=== PATIENT | male | born 1955 | race American Indian/Alaskan Native ===

== ENCOUNTER 2025-02-05 12:36 | Day surgery (SDC) | payer BC, OTHER ==
[~2025-02-05] VITALS: Ht 180.3 cm; Wt 94.4 kg
[~2025-02-05 12:36] MED LIST: CENTRUM SILVER1 EAC3 PO; GARLIC100 MG PO; IBLOOD GLUCOSE TEST STRIP 1 EA TEST VI PRN; JANUVIA25 MG; LACTATED RINGER'S 1,000 ML IV SCH; LANTUS SOL100 UNIT/1 SQ; LIDOCAINE HCL 1% 5 ML SDV INJ ONE; LISINOPRIL20 MG PO; MIDAZOLAM HCL 5 MG/5 ML VIAL IV PRN; NOVOLOG FL100 UNIT/1 SQ; fentaNYL citrate 100 MCG/2 ML VIAL IV PRN
[2025-02-05 13:04] VITALS: BP 142/64
[2025-02-05] MEDS ORDERED: fentaNYL citrate 100 MCG/2 ML VIAL ONE (13:35)
[2025-02-05] MEDS ORDERED: MIDAZOLAM HCL 5 MG/5 ML VIAL ONE (13:35)
--- NOTE | 2025-02-05 14:46 | NUR ---
02/05/25 1446 Amber Palmer 1424 PT ARRIVED TO PACU ON 4L VIA NC, PT ASLEEP AND SMALL AMOUNT OF SNORING NOTED. 1431 PT WAKES EASILY AND IS REORIENTED TO PACU AND EASILY FALLS BACK TO SLEEP WITH SMALL AMOUNT OF SNORING NOTED. 1444 MD AT BEDSIDE TALKING TO PT.
[2025-02-05 15:07] VITALS: BP 135/75
--- NOTE | 2025-02-06 14:32 | OR ---
[facility] [address], [place] [address] Signed DATE OF OPERATION: 02/05/2025 SURGEON: Richard Muñoz MD PREOPERATIVE DIAGNOSIS: Surveillance. POSTOPERATIVE DIAGNOSIS: Polyps x4. PROCEDURE: Total colonoscopy to cecum with cold snare polypectomy x1 and cold morcellation polypectomy x3. ANESTHESIA: Intravenous sedation, fentanyl 100 mcg and Versed 4 mg. INDICATION: This 69-year-old man is a patient of Dr. Mayfield at [facility]. Fifteen years ago in 2009, he underwent colonoscopy where he was found to have an adenomatous polyp of the transverse colon. Two other areas biopsied, but not adenomatous. He has no current symptoms of bleeding, diarrhea, or constipation and no family history of colon cancer. He is admitted to undergo colonoscopy. He understands the risk of bleeding, infection, and perforation. FINDINGS: The prep was good. Complete and full colonoscopy was taken with full intubation of the cecum itself. There were 4 polyps in total, one in the hepatic flexure, another at the transverse colon, another in the proximal left, and another in the sigmoid. All were excised completely. None were worrisome for malignancy. All were adenomatous in appearance. DESCRIPTION OF PROCEDURE: The patient was brought to the endoscopy suite and placed in lateral decubitus position, given intravenous sedation to the point of slurred speech and nystagmus. Digital rectal examination was normal. Prostate was normal as well. The Olympus video colonoscope was passed in the rectum and manipulated throughout the colon noting a small polyp at the hepatic flexure. This was excised with cold morcellation technique. The scope was then advanced fully to the cecum. The ileocecal Electronically Signed By: RICHARD MUÑOZ MD 02/06/25 1432 PATIENT NAME: RICHARD MARTIN JR OPERATIVE REPORT DATE OF : 59 REPORT #: [id number] PHYSICIAN: RICHARD MUÑOZ MD PCP: SERENA MAYFIELD MD REPORT IS CONFIDENTIAL AND NOT TO BE RELEASED WITHOUT AUTHORIZATION [facility] [address], [place] [address] Signed valve and appendiceal orifice were normal. Irrigation was undertaken. The scope was carefully withdrawn from that point. Upon withdrawal of scope, at the hepatic flexure, the previous polypectomy site was identified as normal without sign of bleeding. Further withdrawal showed a small polyp in the mid transverse colon. This was excised with cold snare technique. Further withdrawal found another small polyp of the proximal descending colon, which was excised with cold morcellation technique and ultimately another small polyp of sigmoid similarly excised. Retroflexed view of the rectum was normal. The scope was removed, and the patient was taken to recovery room in good condition. CONCLUDING DIAGNOSIS: Polyps x4, all excised completely. PLAN: Recommend repeat colonoscopy in 3 to 5 years based on current guidelines, sooner if symptoms should develop. He will return to the ongoing care of Dr. Mayfield at [facility]. MD KASIA Gomez/MARQUIS /[id number] cc: Dr. Mayfield Copies: ~ Electronically Signed By: RICHARD MUÑOZ MD 02/06/25 1432 PATIENT NAME: RICHARD MARTIN OPERATIVE REPORT DATE OF : 59 REPORT #: [id number] PHYSICIAN: RICHARD MUÑOZ MD PCP: SERENA MAYFIELD MD REPORT IS CONFIDENTIAL AND NOT TO BE RELEASED WITHOUT AUTHORIZATION
--- NOTE | 2025-02-10 17:10 | PATH ---
[facility] [address] [facility] [place] [address] Signed SPECIMEN(S): A HEPATIC FLEXURE COLON POLYP SPECIMEN(S): B TRANSVERSE COLON POLYP SPECIMEN(S): C DESCENDING COLON POLYP SPECIMEN(S): D SIGMOID POLYP SPECIMEN SOURCE: A. HEPATIC FLEXURE COLON POLYP B. TRANSVERSE COLON POLYP C. DESCENDING COLON POLYP D. SIGMOID POLYP CLINICAL HISTORY: History of polyps and transverse colon. Internal hemorrhoids polyps x 4. A-D) polyp FINAL PATHOLOGIC DIAGNOSIS: A. Colon, hepatic flexure polyp, biopsy: - Portions of tubular adenoma (5 of 7 pieces); negative for high-grade dysplasia and malignancy. - Portion of benign, unremarkable colonic mucosa (2 of 7 pieces). B. Colon, transverse polyp, biopsy: - Portions of tubular adenoma (2 of 3 pieces); negative for high-grade dysplasia and malignancy. - Portion of benign, unremarkable colonic mucosa (1 of 3 pieces). C. Colon, descending polyp, biopsy: - Tubular adenoma. - Negative for high-grade dysplasia and malignancy. D. Colon, sigmoid polyp, biopsy: - Minute hyperplastic polyp (1 of 4 pieces). - Benign, unremarkable colonic mucosa (3 of 4 pieces. - Negative for inflammation, dysplasia, and malignancy. [facility] MICROSCOPIC EXAMINATION: Histologic sections of all submitted blocks are examined by light microscopy. These findings, together with the gross examination, support the pathologic diagnosis. GROSS DESCRIPTION: A. The specimen, labeled and designated "Suman, hepatic flexure colon polyp," is received in formalin and consists of seven demarco soft tissue fragments, PATIENT NAME: RICHARD MARTIN JR PATHOLOGY DATE OF : 59 REPORT #: [id number] PHYSICIAN: BRAD BLANDON PCP: SERENA NAGY MD REPORT IS CONFIDENTIAL AND NOT TO BE RELEASED WITHOUT AUTHORIZATION [facility] [address] [place], [place] [address] Signed ranging from 0.1-0.3 cm. Entirely submitted in (A1). B. The specimen, labeled and designated "Suman, transverse colon polyp," is received in formalin and consists of three demarco soft tissue fragments, ranging from 0.2-0.3 cm. Entirely submitted in (B1). C. The specimen, labeled and designated "Suman, descending colon polyp," is received in formalin and consists of one demarco soft tissue fragment, 0.6 cm. Entirely submitted in (C1). D. The specimen, labeled and designated "Suman, sigmoid polyp," is received in formalin and consists of four demarco soft tissue fragments, ranging from 0.1-0.3 cm. Entirely submitted in (D1). AB (under the direct supervision of a pathologist) The Gross Description was prepared using a voice recognition system. The report was reviewed for accuracy; however, sound-alike word errors, addition and/or deletions may occur. If there are any questions about this report, please contact Client Services. ADDITIONAL NOTES: Immunohistochemical and/or in situ hybridization studies if performed in this case included appropriate positive controls that reacted as expected. This test was developed and its performance characteristics determined by [facility]. It has not been cleared or approved by the U.S. Food and Drug Administration. The FDA has determined that such clearance or approval is not necessary. This test is used for clinical purposes. It should not be regarded as investigational or for research. [facility] is certified under the Clinical Laboratory Improvement Amendments of 1988 (CLIA) as qualified to perform high complexity clinical laboratory testing. PERFORMING LABORATORY: Technical component was performed by [facility], [facility] [place] [address] (CLIA# [id number]). Professional interpretation was performed by [facility] - [facility], [address] [place] [id number] (CLIA#: [id number]). Diagnostician: Janette Jerome MD Pathologist Electronically Signed 02/10/2025 PATIENT NAME: RICHARD MARTIN JR PATHOLOGY DATE OF : 59 REPORT #: [id number] PHYSICIAN: BRAD PATHOLOGY PCP: SERENA NAGY MD REPORT IS CONFIDENTIAL AND NOT TO BE RELEASED WITHOUT AUTHORIZATION [facility] [address] [place] [id number] Signed Copies: ~ PATIENT NAME: RICHARD MARTIN JR PATHOLOGY DATE OF : 59 REPORT #: [id number] PHYSICIAN: BRAD BLANDON PCP: SERENA NAGY MD REPORT IS CONFIDENTIAL AND NOT TO BE RELEASED WITHOUT AUTHORIZATION
== END 2025-02-05 15:15 | disposition home or self-care (01) ==
LOC: OPS 12:36 → DS 12:36 → OPS 14:00
PROVIDERS: ATTEND Surgery
PROC: 0DBL8ZZ Excision of Transverse Colon, Via Natural or Artificial Opening Endoscopic (ICD-10-PCS; 2025-02-05)
PROC: 0DBN8ZZ Excision of Sigmoid Colon, Via Natural or Artificial Opening Endoscopic (ICD-10-PCS; 2025-02-05)
PROC: 0DBM8ZZ Excision of Descending Colon, Via Natural or Artificial Opening Endoscopic (ICD-10-PCS; principal; 2025-02-05 14:00)
DX: Z12.11 Encounter for screening for malignant neoplasm of colon (principal); D12.3 Benign neoplasm of transverse colon; D12.4 Benign neoplasm of descending colon; K63.5 Polyp of colon; I10 Essential (primary) hypertension; E78.5 Hyperlipidemia, unspecified; E11.9 Type 2 diabetes mellitus without complications; Z79.4 Long term (current) use of insulin; Z79.899 Other long term (current) drug therapy; Z86.0101 Personal history of adenomatous and serrated colon polyps; Z90.49 Acquired absence of other specified parts of digestive tract
CPT/HCPCS: 99153; G0500; J2250; J3010; J7121